=== PATIENT | female | born 1960 | race Caucasian/White ===

== ENCOUNTER 2021-02-16 13:42 | Emergency (ER) | payer OTHER, BC ==
[~2021-02-16] VITALS: Ht 160 cm; Wt 83.9 kg
== END 2021-02-16 16:59 | disposition home or self-care (01) ==
LOC: ER 13:42
DX: S61.011A Laceration without foreign body of right thumb without damage to nail, initial encounter (principal); W22.8XXA Striking against or struck by other objects, initial encounter; Y93.89 Activity, other specified; Y92.9 Unspecified place or not applicable; Y99.0 Civilian activity done for income or pay
CPT/HCPCS: 12002; 73130; 90471; 90714; 99283-25